=== PATIENT | female | born 1960 | race Caucasian/White ===

== ENCOUNTER → 2024-06-30 | Outpatient (CLI) | payer OTHER, SELFPAY ==
--- NOTE | 2024-06-30 09:30 | XR_ITS ---
EXAMINATION: PET/CT FUSION SKULL TO THIGH EXAM DATE AND TIME: June 30, 2024 10 0 2:00 AM Comparison June 25, 2023 INDICATIONS: Diagnosis cervical carcinoma restaging post treatment CTDI:vol (mGy) 2.54 DLP: (mGycm) 232.42 PROCEDURE: 15.49 mCi FDG was administered intravenously To allow for distribution and uptake of radiotracer, the patient was allowed to rest quietly in a shielded room. Imaging was performed on an integrated 16-slice PET/CT scanner, with scanning from the skull base to the mid thigh. Serum blood glucose at the time of the injection was measured 113 mg/dL. CT scanning was performed without oral or intravenous contrast material. FINDINGS: Head and Neck: There is no sarah hypermetabolism in the neck. The visualized portions of the brain are normal in appearance on CT. Chest: There is no sarah hypermetabolism in the chest. There are no pulmonary nodules. Abdomen and Pelvis: There is no sarah hypermetabolism in retroperitoneal or pelvic chains. The spleen is normal in size and FDG avidity. Musculoskeletal: Marrow uptake is within normal range. IMPRESSION: No interval metastatic disease
== END | disposition home or self-care (01) ==
PROVIDERS: PCP Family Medicine; Referring Provider Nurse Practitioner Women's Health; Visit Provider Nurse Practitioner Women's Health
DX: C53.0 Malignant neoplasm of endocervix (principal)
CPT/HCPCS: 78815; A9552

== ENCOUNTER → 2024-09-22 | Outpatient (CLI) | payer MEDICARE, OTHER, SELFPAY ==
[2024-09-22 09:31] LABS: Basophils # (Auto) 0.1 Thou/mm3 (0.0-0.2); Basophils % (Auto) 1 % (0-2.5); Eosinophils % (Auto) 1 % (0-10); Hematocrit 39.3 % (36.0-46.0); Hemoglobin 13.2 g/dL (12.0-16.0); Immature Granulocytes % (Auto) 0 % (0-0); Immature Granulocytes Auto 0.01 Thou/mm3 (0.00-0.00); Lymphocytes # (Auto) 1.4 Thou/mm3 (1.0-4.8); Lymphocytes % (Auto) 37 % (10-50); Mean Corpuscular HGB Conc 33.6 g/dl (31.0-37.0); Mean Corpuscular Hemoglobin 32.8 pg (25.0-35.0); Mean Corpuscular Volume 98 fL (80-100); Monocytes # (Auto) 0.5 Thou/mm3 (0.0-0.8); Monocytes % (Auto) 13 % (0-12); Neutrophils # (Auto) 1.8 Thou/mm3 (1.8-7.7); Neutrophils % (Auto) 48 % (37-80); Nucleated Red Blood Cell % 0 /100 WBC (0); Platelet Count 276 Thou/mm3 (140-440); RDW Standard Deviation 44.1 fL (36.4-46.3); Red Blood Count 4.03 Miln/mm3 (4.00-5.20); White Blood Count 3.8 Thou/mm3 (3.6-11.0)
[2024-09-22 11:11] LABS: Alanine Aminotransferase 15 U/L (10-49); Albumin, Serum 4.3 gm/dL (3.4-4.8); Alkaline Phosphatase 57 U/L (46-116); Anion Gap 5 (7-16); Aspartate Amino Transferase 20 U/L (0-34); BUN/Creatinine Ratio 18 Ratio (12-20); Bilirubin,Direct 0.2 mg/dL (0.0-0.3); Bilirubin,Total 0.9 mg/dL (0.3-1.2); Blood Urea Nitrogen 14 mg/dL (9-23); Calcium 9.4 mg/dL (8.3-10.6); Carbon Dioxide 30.2 mMol/L (20.0-31.0); Cardiac Risk Estimate 2.3 RATIO (3.7-5.6); Chloride 99 mMol/L (98-107); Cholesterol 237 mg/dL (132-200); Creatinine (Component) 0.8 mg/dL (0.6-1.3); Free T4 (Free Thyroxine) 1.17 ng/dL (0.89-1.76); Glucose 105 mg/dL (74-106); HDL Cholesterol 101 mg/dL (40-60); LDL Cholesterol,Calculated 119 mg/dL (0-130); Osmolality,Calculated 268 (275-295); Potassium 4.7 mMol/L (3.4-5.1); Sodium 134 mMol/L (136-145); Thyroid Stimulating Hormone 3.47 uIU/mL (0.55-4.78); Total Protein 6.7 gm/dL (5.7-8.2); Triglycerides 83 mg/dL (30-150); eGFR > 60 See Note
== END | disposition home or self-care (01) ==
PROVIDERS: PCP Family Medicine; Referring Provider Internal Medicine Cardiovascular Disease; Visit Provider Internal Medicine Cardiovascular Disease
DX: I10 Essential (primary) hypertension (principal); E78.5 Hyperlipidemia, unspecified; I49.9 Cardiac arrhythmia, unspecified; I20.9 Angina pectoris, unspecified
CPT/HCPCS: 36415; 80048; 80061; 80076; 84439; 84443; 85025

== ENCOUNTER → 2025-03-20 | Outpatient (CLI) | payer MEDICARE, SELFPAY ==
--- NOTE | 2025-03-20 13:15 | XR_ITS ---
Examination: Screening digital mammography, bilateral Computer aided detection 3-D breast Tomosynthesis, bilateral Date and time of exam: March 20, 2025, 1354 hours, compared to mammograms dating to November 23, 2020 Indication: Screening Technique: Nonmagnified MLO, CC views of the breasts to been obtained, reconstructed from 3-D Tomosynthesis images. R2 computer aided detection program utilized for evaluation of suspicious masses and/or abnormal calcifications. 3-D Tomosynthesis images obtained. Findings: The breasts are heterogeneously dense, which may obscure small masses 10 mm focal asymmetry outer right breast cc view, 4.6 cm from the nipple 12 mm focal asymmetry upper left breast MLO view, 4.6 cm from the nipple Impression: BI-RADS Category 0: Incomplete: Need additional imaging evaluation 10 mm focal asymmetry outer right breast cc view, recommend follow-up spot tomographic views upper outer quadrant right breast 12 mm focal asymmetry upper left breast MLO view, recommend follow-up spot tomographic views upper outer left breast Recommend bilateral breast sonography follow-up to complete .
== END | disposition home or self-care (01) ==
LOC: CDIM 13:48
PROVIDERS: Referring Provider Nurse Practitioner Family; Visit Provider Nurse Practitioner Family
DX: Z12.31 Encounter for screening mammogram for malignant neoplasm of breast (principal); R92.8 Other abnormal and inconclusive findings on diagnostic imaging of breast; N64.89 Other specified disorders of breast
CPT/HCPCS: 77063; 77067

== ENCOUNTER → 2025-05-03 | Outpatient (CLI) | payer MEDICARE, SELFPAY ==
--- NOTE | 2025-05-03 13:30 | XR_ITS ---
Examination: Breast ultrasound complete, bilateral Date and time of exam: May 03, 2025, 1407 hours INDICATIONS: Mammogram March 20, 2000 2510 mm focal asymmetry outer right breast 12 mm focal asymmetry upper left breast Technique: Real-time grayscale ultrasonographic imaging bilateral breasts, including all 4 quadrants as well as nipple retroareolar and axillary regions. Findings: Sonographic images right breast 9:00 cyst 5 x 5 mm No solid nodules Sonographic images left breast No cystic or solid mass IMPRESSION: BI-RADS Category 2: Benign findings
--- NOTE | 2025-05-03 14:15 | XR_ITS ---
Examination: Diagnostic digital mammography, bilateral Computer aided detection 3-D breast Tomosynthesis, bilateral Date and time of exam: May 03, 2025, 1434 hours INDICATIONS: Mammogram March 20, 2000 2510 mm focal asymmetry outer right breast and 12 mm focal asymmetry upper left breast Technique: Nonmagnified MLO, CC views of the breasts to been obtained, reconstructed from 3-D Tomosynthesis images. R2 computer aided detection program utilized for evaluation of suspicious masses and/or abnormal calcifications. 3-D Tomosynthesis images obtained. Findings: The breasts are heterogeneously dense, which may obscure small masses No suspicious masses are noted on the spot compression views There does remain focal asymmetry upper left breast MLO view Impression: BI-RADS Category 3: Probably benign findings 1 additional 6-month left mammogram follow-up to document stability of focal asymmetry upper left breast MLO view.
== END | disposition home or self-care (01) ==
PROVIDERS: PCP Family Medicine; Referring Provider Family Medicine; Visit Provider Family Medicine
DX: R92.333 Mammographic heterogeneous density, bilateral breasts (principal); N64.89 Other specified disorders of breast
CPT/HCPCS: 76641; 77062; 77066; G0279